=== PATIENT | male | born 1935 | race Native Hawaiian/Other Pacific Islander ===

== ENCOUNTER 2018-05-10 17:07 | Emergency (ER) | payer OTHER ==
[~2018-05-10] VITALS: Ht 170.2 cm; Wt 76.2 kg
[2018-05-10 17:07] VITALS: BP 146/79; TEMP 97.8
[2018-05-10 17:27] LABS: PLATELET COUNT 199 K/uL (142-355)
[2018-05-10 17:34] LABS: POTASSIUM 3.8 mmol/L (3.6-5.2)
[2018-05-10] MEDS ORDERED: DULCOLAX5 MG PO (18:12)
[2018-05-10] MEDS ORDERED: TRAZ50TA36 PO (18:13)
[2018-05-10] MEDS ORDERED: HYDR5TAB9 PO (18:14)
[2018-05-10] MEDS ORDERED: HALO5INJ3 IM (18:15)
[2018-05-10] MEDS ORDERED: AMLODIPINE BESYLATE PO (18:16)
[2018-05-10] MEDS ORDERED: ASPI81TA4 PO (18:17)
[2018-05-10] MEDS ORDERED: METF500T PO (18:18)
[2018-05-10] MEDS ORDERED: LIPITOR20 MG PO (18:18)
[2018-05-10] MEDS ORDERED: METO-837 PO (18:20)
[2018-05-10] MEDS ORDERED: DIVA250T PO (18:20)
== END 2018-05-10 18:15 | disposition other institution (70) ==
LOC: ED 17:07
PROVIDERS: Family Medicine
DX: R46.89 Other symptoms and signs involving appearance and behavior (principal); F32.89 Other specified depressive episodes; Z04.6 Encounter for general psychiatric examination, requested by authority
CPT/HCPCS: 36415; 80053; 81000; 85027; 93005; 99285